=== PATIENT | female | born 1935 | race Caucasian/White ===

== ENCOUNTER 2018-10-28 20:24 | Emergency (ER) | payer MEDICARE, OTHER ==
[2018-10-28] MEDS ORDERED: traMADol 50 MG Tab PO ONE (21:55)
[2018-10-28] MEDS ORDERED: Acetaminophen/HYDROcodone 325-5 MG Tab PO ONE (22:56)
--- NOTE | 2018-10-28 23:06 | EDM.PDOC ---
ED HPI GENERAL MEDICAL PROBLEM - General Stated Complaint: KNEE PAIN Time Seen by Provider: 10/28/18 21:15 Source of Information: Reports: Patient History Limitations: Reports: No Limitations - History of Present Illness INITIAL COMMENTS - FREE TEXT/NARRATIVE: 83-year-old female who reports she's had some pain in both her knees for quite some time. At approximately 6:30 PM, she was walking across her lawn and she felt like her left knee was giving out on her she caught herself with the cane and her left knee twisted. She did not fall but she had immediate pain in her left knee and she has been unable to bear weight on her left leg since that time because of extreme pain. She reports pain goes up to a 10 over 10 when she tries to bear weight. As about a 5/10 now. It is sharp and shooting when she tries to bear weight. It is aching and throbbing now. She's noticed some swelling in her left knee since this occurred. She has normal sensation in her foot. She's had no nausea or vomiting. She's had no fevers. The pain is worse with bending and when she tries to bear weight. There are no other associated signs or symptoms. There are no other modifying factors. Onset: Today (As above) Duration: Constant Location: Reports: Lower Extremity, Left (Left knee) Quality: Reports: Ache, Sharp, Throbbing Severity: Moderate (to severe) Improves with: Reports: Rest Worsens with: Reports: Other (Palpation), Movement Context: Reports: Activity (As above) Associated Symptoms: Reports: No Other Symptoms Treatments SOCIAL MEDIA EDITOR: Reports: Other (see below) (Nothing) - Related Data Allergies Allergy/AdvReac Type Severity Reaction Status Date / Time bacitracin Allergy Rash Verified 05/18/16 20:54 [From Neosporin ([id number])] neomycin Allergy Rash Verified 05/18/16 20:54 [From Neosporin ([id number])] polymyxin B Allergy Rash Verified 05/18/16 20:54 [From Neosporin ([id number])] Home Meds: Home Meds Acetaminophen [Tylenol Extra Strength] 500 mg PO 0800,2100 03/08/16 [History] Biotin 5 mg PO 1800 03/08/16 [History] Caltrate 600+Vit D 200 1 tab PO 1200 03/08/16 [History] Cholecalciferol (Vitamin D3) [Vitamin D3] 1,000 units PO 1200 03/08/16 [History] Cranberry Extract [Cranberry] 300 mg PO 1200 03/08/16 [History] Escitalopram [Lexapro] 10 mg PO DAILY 03/08/16 [History] Fish Oil/DHA/EPA [Fish Oil 1,200 MG] 1,200 mg PO 1800 03/08/16 [History] Glimepiride [Amaryl] 1 mg PO WITHBREAKFAST 03/08/16 [History] Glucosamine-Chondroitin 500-400 1 cap PO DAILY 03/08/16 [History] Losartan [Cozaar] 50 mg PO DAILY 03/08/16 [History] Magnesium Oxide 250 mg PO 1200 03/08/16 [History] Multivitamin [Multivitamins] 1 tab PO DAILY 03/08/16 [History] Vit E/Zn/Lut/Lyco/Bilber/Hb261 [Lipotriad Vision Support Plus] 400 units PO DAILY 03/08/16 [History] atorvaSTATin [Lipitor] 20 mg PO BEDTIME 03/08/16 [History] Azithromycin [Z-Odin] 250 mg PO DAILY 05/18/16 [History] Prednisone [IJD: Prednisone] 100 mg PO DAILY 05/18/16 [History] Hydrocodone/Acetaminophen [Flora 5-325 Tablet] 1 - 2 each PO Q6H PRN #14 tablet 10/28/18 [Rx] Past Medical History HEENT History: Reports: Impaired Vision Cardiovascular History: Reports: High Cholesterol, Hypertension, SOB on Exertion Gastrointestinal History: Reports: Hemorrhoids Psychiatric History: Reports: Depression Endocrine/Metabolic History: Reports: Diabetes, Type II Oncologic (Cancer) History: Reports: Lymphoma, Non-Hodgkin's Lymphoma - Infectious Disease History Infectious Disease History: Reports: Chicken Pox, Measles, Mumps - Past Surgical History Female Surgical History: Reports: Dilitation & Evacuation Musculoskeletal Surgical History: Reports: ORIF (Of wrist) Oncologic Surgical History: Reports: Biopsy of Breast Social & Family History - Family History Cardiac: Reports: Hypertension, PR OBGYN: Reports: Musculoskeletal: Reports: Arthritis Neurological: Reports: Dementia Endocrine/Metabolic: Reports: Obesity/MBI 30+ Oncologic: Reports: Bladder, Breast, Lung, Prostate - Tobacco Use Smoking Status *Q: Never Smoker - Caffeine Use Caffeine Use: Reports: Coffee - Alcohol Use Alcohol Use History: No - Living Situation & Occupation Occupation: Retired Social History Comment: Lives independently. ED ROS GENERAL - Review of Systems Review Of Systems: See Below Constitutional: Reports: No Symptoms HEENT: Reports: No Symptoms Respiratory: Reports: No Symptoms Cardiovascular: Reports: No Symptoms Endocrine: Reports: No Symptoms GI/Abdominal: Reports: No Symptoms : Reports: No Symptoms Musculoskeletal: Reports: Joint Pain (Left knee pain as above.) Skin: Reports: No Symptoms Neurological: Reports: No Symptoms Hematologic/Lymphatic: Reports: No Symptoms Immunologic: Reports: No Symptoms ED EXAM, GENERAL - Physical Exam Exam: See Below Exam Limited By: No Limitations General Appearance: Alert, WD/WN, Moderate Distress Eye Exam: Bilateral Eye: EOMI, Normal Inspection, PERRL Ears: Normal External Exam, Hearing Grossly Normal Nose: Normal Inspection, Normal Mucosa Throat/Mouth: Normal Inspection, Normal Voice, No Airway Compromise Head: Atraumatic, Normocephalic Neck: Normal Inspection, Supple, Non-Tender, Full Range of Motion Respiratory/Chest: No Respiratory Distress, Lungs Clear, Normal Breath Sounds, No Accessory Muscle Use, Chest Non-Tender Cardiovascular: Normal Peripheral Pulses, Regular Rate, Rhythm, No JVD Peripheral Pulses: 2+: Dorsalis Pedis (L), Dorsalis Pedis (R) GI/Abdominal: Normal Bowel Sounds, Soft, Non-Tender, No Organomegaly, No Distention, No Mass Back Exam: Normal Inspection Extremities: Normal Capillary Refill, Joint Swelling, Limited Range of Motion ( Left knee secondary to pain), Other (Tender over left knee diffusely with effusion). No: Redness Neurological: Alert, Oriented, CN II-XII Intact, Normal Cognition, No Motor/ Sensory Deficits Skin Exam: Warm, Dry, Intact, Normal Color, No Rash Lymphatic: No Adenopathy Course - Orders/Labs/Meds Orders: Active Orders 24 hr Category Date Time Status Knee 1V or 2V Lt [CR] Stat Exams 10/28/18 21:25 Taken Meds: Medications Discontinued Medications Generic Name Dose Route Start Last Admin Trade Name Freq PRN Reason Stop Dose Admin Hydrocodone Bitart/Acetaminophen 1 tab 10/28/18 22:56 10/28/18 23:34 Flora 325-5 Mg PO 10/28/18 22:57 1 tab ONETIME ONE Administration Tramadol HCl 50 mg 10/28/18 21:55 10/28/18 22:11 Ultram PO 10/28/18 21:56 50 mg ONETIME ONE Administration - Radiology Interpretation Free Text/Narrative:: X-ray of left knee showed no fracture. 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 There was an effusion. Departure - Departure Time of Disposition: 23:10 Disposition: Home, Self-Care 01 Condition: Good Clinical Impression: Effusion, left knee Internal derangement of knee Qualifiers: Laterality: left Qualified Code(s): M23.92 - Unspecified internal derangement of left knee Strain of left knee Qualifiers: Encounter type: initial encounter Qualified Code(s): S86.912A - Strain of unspecified muscle(s) and tendon(s) at lower leg level, left leg, initial encounter - Discharge Information Prescriptions: Hydrocodone/Acetaminophen [Flora 5-325 Tablet] 1 - 2 each PO Q6H PRN #14 tablet PRN Reason: Moderate to severe pain Instructions: Knee Effusion, Muscle Strain Referrals: Maurilio Tomlinson MD [Primary Care Provider] - Additional Instructions: Your x-ray showed no fracture. As we discussed, you appear to have an injury to either the ligaments or the cartilage in your knee. You do have a collection of fluid or an effusion in your knee. Use your walker with no weightbearing on your left leg for now. Use the Jefferson wrap on your left knee and apply ice packs intermittently to your left knee. I am referring you to see Dr. Alvarez, orthopedist associated with [facility]. They should call you to arrange an appointment. Back to the emergency department for redness, marked increase in pain, fever, increasing swelling or any other concerning sign or symptom. - My Orders Last 24 Hours: My Active Orders 10/28/18 21:25 Knee 1V or 2V Lt [CR] Stat - Assessment/Plan Last 24 Hours: My Active Orders 10/28/18 21:25 Knee 1V or 2V Lt [CR] Stat
[2018-10-29 09:47] VITALS: BP 126/69
== END 2018-10-28 23:45 | disposition home or self-care (01) ==
LOC: FB.ED 20:24
DX: S86.912A Strain of unspecified muscle(s) and tendon(s) at lower leg level, left leg, initial encounter (principal); E78.00 Pure hypercholesterolemia, unspecified; I10 Essential (primary) hypertension; E11.9 Type 2 diabetes mellitus without complications; F32.9 Major depressive disorder, single episode, unspecified; Z79.899 Other long term (current) drug therapy; Z88.1 Allergy status to other antibiotic agents; Z88.5 Allergy status to narcotic agent; X50.1XXA Overexertion from prolonged static or awkward postures, initial encounter
CPT/HCPCS: 73560; 99283; A9270

== ENCOUNTER 2023-02-27 08:29 | Day surgery (SDC) | payer MEDICARE, OTHER ==
[2023-02-27] MEDS ORDERED: Sodium Chloride 0.9% 10 ML Syringe FLUSH PRN (08:30)
[2023-02-27] MEDS ORDERED: fentaNYL 100 MCG/2 ML SDV IV ONE (08:30)
[2023-02-27] MEDS ORDERED: Midazolam 1 MG/ML 2 ML SDV IV ONE (08:30)
[2023-02-27] MEDS: Lactated Ringers 1,000 ML IV SCH (08:48)
[2023-02-27] MEDS: acetaZOLAMIDE 500 MG Cap.ER PO ONE (10:15)
[2023-02-27 11:25] VITALS: BP 126/72; PULSE 81
== END 2023-02-27 10:50 | disposition home or self-care (01) ==
LOC: FB.SDS 08:29
PROVIDERS: ATTEND Ophthalmology
DX: H26.9 Unspecified cataract (principal); E78.5 Hyperlipidemia, unspecified; I11.0 Hypertensive heart disease with heart failure; I50.22 Chronic systolic (congestive) heart failure; E11.9 Type 2 diabetes mellitus without complications; Z79.899 Other long term (current) drug therapy; Z98.890 Other specified postprocedural states; Z88.1 Allergy status to other antibiotic agents
CPT/HCPCS: 00142; 82947; A9270-GY; J2250; J3010; J7120; V2632

== ENCOUNTER 2023-03-13 08:26 | Day surgery (SDC) | payer MEDICARE, OTHER ==
[2023-03-13] MEDS ORDERED: fentaNYL 100 MCG/2 ML SDV IV ONE (08:27)
[2023-03-13] MEDS ORDERED: Midazolam 1 MG/ML 2 ML SDV IV ONE (08:27)
[2023-03-13] MEDS ORDERED: Sodium Chloride 0.9% 10 ML Syringe FLUSH PRN (08:30)
[2023-03-13] MEDS ORDERED: Lactated Ringers 1,000 ML IV SCH (08:30)
[2023-03-13 10:30] VITALS: PULSE 53
[2023-03-13 10:45] VITALS: BP 143/71
[2023-03-13] MEDS ORDERED: acetaZOLAMIDE 500 MG Cap.ER PO ONE (10:45)
== END 2023-03-13 10:54 | disposition home or self-care (01) ==
LOC: FB.SDS 08:26
PROVIDERS: ATTEND Ophthalmology
DX: E11.36 Type 2 diabetes mellitus with diabetic cataract (principal); H25.13 Age-related nuclear cataract, bilateral; I11.0 Hypertensive heart disease with heart failure; I50.22 Chronic systolic (congestive) heart failure; E78.5 Hyperlipidemia, unspecified; I42.8 Other cardiomyopathies; F32.A Depression, unspecified; Z79.899 Other long term (current) drug therapy; Z88.1 Allergy status to other antibiotic agents; Z88.8 Allergy status to other drugs, medicaments and biological substances
CPT/HCPCS: 00732; 66984; 82947; A9270; J2250; J3010; J7120; V2632